=== PATIENT | female | born 1950 | race Caucasian/White ===

== ENCOUNTER → 2017-08-01 | Outpatient (CLI) | payer OTHER ==
[~2017-08-01] MED LIST: CALC-51 PO; CHOL1000 PO; TAMO20TA9 PO
[2017-08-01 09:16] VITALS: BP 121/76; PULSE 73; TEMP 37; O2SAT 96
--- NOTE | 2017-08-01 12:54 | Radiation Oncology Follow-Up ---
Radiation Oncology Follow-Up Date of Visit Aug 01, 2017. Reason For Visit One-month follow-up and cancer survivorship care plan Radiation Completion Date finished 06-26-2017 , utilizing hypo fractionation Diagnosis (1) Malignant neoplasm of lower-outer quadrant of left female breast Status: Acute Onset Date: 02/27/2017 Stage: l (B) Permanent Comment: Abnormal left breast mammogram Palpable mass and skin retraction Status post core needle biopsy 02/27/2017 atypical epithelial proliferation, invasive carcinoma cannot be ruled out Status post breast MRI 03/18/2017 Status post lumpectomy 03/19/2017 Invasive carcinoma, no specific type, grade 2 Estrogen receptor positive, progesterone receptor positive, HER-2/zina negative Status post sentinel lymph node biopsy 04/02/2017 1 node showing micrometastasis 0.25 mm Stage pT1b pN1mi M0 Oncotype DX score of 8 Status post completion of radiation therapy 06/26/2017. She received 5130 cGy utilizing hypo-fractionation. Last Edited By: Becky Sinclair on Aug 01, 2017 12:45 History of Present Illness Ms. Villar found a lump in her left breast for the last several years. She did have a bilateral screening mammogram completed in September 2016 which showed no evidence of concerning lesions. After she brought the breast mass to the attention of her doctor, she did undergo a unilateral left diagnostic mammogram and ultrasound on 02/19/2017 which revealed a solid mass at the 5 o'clock position in the left breast that was hypoechoic. The patient then underwent an ultrasound-guided biopsy on 02/27/2017 which revealed a minute focus of atypical epithelial proliferation, invasive carcinoma cannot be ruled out. The patient then underwent an MRI of the breasts bilaterally on 03/18/2017 which revealed a 17 mm mass in the left breast suspicious for invasive ductal carcinoma as well as a 2 mm enhancing focus adjacent to the mass. The patient then underwent a left breast lumpectomy on 03/19/[address] Effie Longo which revealed invasive ductal carcinoma that was grade 2 and measured 0.7 cm in the greatest dimension. The margins were all negative and the closest margin was 0.5 mm. There was no evidence of lymphovascular space invasion. Ductal carcinoma in situ was present and was grade 2. The tumor was estrogen receptor positive, progesterone receptor positive and HER-2 negative. The patient was brought back to the operating room on 04/02/2017 and underwent a left axillary sentinel lymph node excision. Pathology revealed 1/2 positive lymph nodes with micrometastatic disease involving the positive lymph node measuring 0.25 mm. The patient was staged as pT1bN1(mi). The patient did have an Oncotype DX study completed on her surgical specimen which revealed a recurrence score of 8 and placed her in the low risk category. She underwent a CT simulation and was found to be a candidate for hypo- fractionation. Radiation was completed 06/26/2017. The patient was seen by Dr. Toni Proctor from medical oncology who recommended adjuvant tamoxifen and advised against Arimidex due to the patient's bone density. Dr. Proctor advised against systemic chemotherapy due to the patient's Oncotype DX score. The patient was seen by radiation oncology and the [facility] in [place], [place]. The recommendation was for adjuvant radiation therapy. As per the patient, there was confusion regarding the amount of lymph nodes that were going to be treated due to her micrometastatic disease. The patient has self- referred herself for a second opinion consultation regarding the role of radiation therapy. We are now seeing the patient in consultation discuss role of radiation therapy. The Oncotype DX score was found to be 8. She did not require chemotherapy. She returned to our office for CT simulation. She completed radiation therapy 06/26/2017. She received 5130 cGy utilizing hypo-fractionation. Interim History She has been doing well over this past month. She did not experience any problems with wet desquamation. She did have radiation dermatitis that was treated with natural care gel and Aquaphor. She is noted some swelling of the nipple and some irritation of the skin around the nipple. The pain only occurs if this is bumped. She is a pain level of 2-3. She started the tamoxifen following the radiation. She's been doing well. She does have hot flashes. Mammography has been scheduled through Dr. Longo's office. Allergies Coded Allergies: No Known Allergies (Unverified , 05/21/17) Home Medications Scheduled Calcium Carbonate-Vitamin D (Calcium), 1 TAB PO DAILY Cholecalciferol (Vitamin D3), 1 TAB PO DAILY Tamoxifen (Nolvadex), 20 MG PO DAILY Review of Systems Gastrointestinal: Symptoms: WNL Oral: Symptoms: No Problems Respiratory: Symptoms: WNL Urinary: Symptoms: WNL Skin: Symptoms: No Problems Breast: Right Upper Arm Measurement: 25.0 Right Mid Arm Measurement: 21.8 Right Wrist Measurement: 14.5 Left Upper Arm Measurement: 25.5 Left Mid Arm Measurement: 21.7 Left Wrist Measurement: 14.1 Arm Dominence: Left Patient Cosmetic Evaluation: Good Staff Cosmetic Evalaluation: Good Additional Notes: She completed a distress management report and answered "no" to all questions. Physical Exam Vital Signs Date Time Temp Pulse Resp B/P (MAP) Pulse Ox O2 Delivery O2 Flow Rate FiO2 08/01/17 09:16 37.0 73 16 121/76 96 General Appearance: no apparent distress Eyes: normal inspection, EOMI ENT: normal ENT inspection, hearing grossly normal Neck: no adenopathy, thyroid normal Respiratory/Chest: lungs clear, no respiratory distress, no accessory muscle use Breast: Breast examination reveals well-healed incisions of the left breast. There is mild swelling of the nipple. There is mild erythema around the nipple. There is small amount of white exudate at the bottom of the nipple. There is no wet or dry desquamation. Minimal hyperpigmentation. There are no masses or tenderness no axillary adenopathy. Using the [place] score cosmesis she has a good outcome. The right breast showed no masses or tenderness and no axillary adenopathy. Cardiovascular: regular rate, rhythm, no gallop, no murmur Extremities: no pedal edema Neurologic/Psychiatric: no motor/sensory deficits, alert, normal mood/affect Skin: warm/dry Pain Management Patient Reports Pain: Yes Side: Left Pain Location: nipple Patient Preferred Pain Scale: 0 - 10 Initial Pain Intensity: 2.0 Pain Management Plan The pain that she is experiencing is of the nipple. It does not require any [id number] or prescriptive pain medications. This is due to the resolving dermatitis at the nipple. Laboratory Laboratory Results: not applicable Pathology Pathology Results: not applicable Imaging Imaging Studies: not applicable Assessment & Plan Plan: Continue regular follow-up with her primary care physician, Dr. Longo, and Dr. Proctor in medical oncology. She continues on the tamoxifen. She does have hot flashes. We discussed using vitamin E to help with hot flashes. For the irritation at the nipple it was recommended that she use [id number] antifungal cream such as Lamisil. We discussed prevention of lymphedema. She she was interested in a referral to discuss lymphedema prevention at the lymphedema clinic. She'll therefore be referred. She lives in [place] and we will try to see if there is a facility that we'll see patients for prevention of lymphedema. If not she'll be referred to a clinic here in [place]. Today we completed a cancer survivorship care plan. A copy of the document was given to the patient. She was given a survivorship booklet. She' ll continue with follow-up mammography. This has been arranged by Dr. Longo's office. We asked her to return to our office in 6 months. She may call if she has any questions or concerns in the interim. Assessment & Plan (Attending) ADDENDUM: I agree with note created by Becky Sinclair PA-C. I reviewed the patient's chart and information with her. I have examined and evaluated the patient. I reviewed relevant clinical information and answered the patient's and /or family's questions. DIRECTOR OF VIDEO ANALYTICS Total Time In Follow-Up I spent 20 minutes speaking to the patient and performing examination. I spent 20 minutes reviewing information, preparing the survivorship document, and completing this note. Total Time (Attending) In Follow-Up I spent 15 minutes examining and counseling the patient. DIRECTOR OF VIDEO ANALYTICS Copy To Darlene Huddleston D.O.; Effie Longo MD; Toni Proctor M.D. Problem Qualifiers (1) Malignant neoplasm of lower-outer quadrant of left female breast: Estrogen receptor status: positive Qualified Codes: C50.512 - Malignant neoplasm of lower-outer quadrant of left female breast; Z17.0 - Estrogen receptor positive status [ER+]
== END | disposition home or self-care (01) ==
LOC: C.ONC 09:07
PROVIDERS: ATTEND Physician Assistant Medical
DX: Z08 Encounter for follow-up examination after completed treatment for malignant neoplasm (principal); Z92.3 Personal history of irradiation; Z85.3 Personal history of malignant neoplasm of breast